=== PATIENT | female | born 1960 | race Asian ===

== ENCOUNTER 2017-06-17 07:35 | Day surgery (SDC) | payer BC ==
[2017-06-12 10:56] LABS: PLATELET COUNT 275 K/uL (152-353)
[2017-06-12 11:05] LABS: POTASSIUM 3.5 mmol/L (3.6-5.2)
[~2017-06-17] VITALS: Ht 30.5 cm; Wt 0.5 kg
== END 2017-06-17 10:39 | disposition home or self-care (01) ==
LOC: OR 07:35
PROVIDERS: Student in an Organized Health Care Education/Training Program
PROC: 0DJD8ZZ Inspection of Lower Intestinal Tract, Via Natural or Artificial Opening Endoscopic (ICD-10-PCS; principal; 2017-06-17)
DX: K64.8 Other hemorrhoids (principal); K64.4 Residual hemorrhoidal skin tags; Z12.11 Encounter for screening for malignant neoplasm of colon
CPT/HCPCS: 36415; 80053; 85027; J2001; J2250; J2704; J3010; J3490